=== PATIENT | female | born 1975 | race Caucasian/White ===

== ENCOUNTER 2018-04-14 11:30 | Emergency (ER) | payer SELFPAY ==
[2018-04-14 11:31] VITALS: BP 148/104; PULSE 77; RESP 16; TEMP 36.3; O2SAT 97; BMI 36.3
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
[2018-04-14] MEDS: Naproxen 500 MG Tablet PO (11:56)
[2018-04-14 12:16] VITALS: RESP 16
== END 2018-04-14 12:17 | disposition home or self-care (01) ==
LOC: ED 12:12
PROVIDERS: Emergency Provider Emergency Medicine; Family Provider Family Medicine; PCP Family Medicine
DX: S16.1XXA Strain of muscle, fascia and tendon at neck level, initial encounter (principal); S39.012A Strain of muscle, fascia and tendon of lower back, initial encounter; V49.9XXA Car occupant (driver) (passenger) injured in unspecified traffic accident, initial encounter; Y93.9 Activity, unspecified; Y92.9 Unspecified place or not applicable; Y99.9 Unspecified external cause status; E03.9 Hypothyroidism, unspecified; K50.90 Crohn's disease, unspecified, without complications; Z79.899 Other long term (current) drug therapy
CPT/HCPCS: 99283

== ENCOUNTER → 2018-06-08 08:43 | Outpatient (CLI) | payer SELFPAY ==
[2018-06-08 09:18] LABS: Absolute Lymphocyte Count 1.32 X10^3/ul (0.83-4.51); Absolute Neutrophil Count 3.5 X10^3/uL (2.0-7.7); Basophil# 0.03 X10^3/uL; Basophil% 0.6 % (0-1); Eosinophil# 0.14 X10^3/uL; Eosinophils% 2.6 % (0-5); Hematocrit 40.3 % (37-47); Hemoglobin 13.8 g/dl (12.0-15.0); Lymphocyte # 1.32 X10^3/ul (4.0); Lymphocyte % 24.5 % (19-41); Mean Corp Hgb Conc 34.2 g/gl (32-36); Mean Corpuscular Hgb 30.4 pg (27.0-32.0); Mean Corpuscular Volume 88.8 fL (81-99); Mean Platelet Vol. 9.4 fl (6.2-12.0); Monocyte# 0.38 X10^3/uL; Monocyte% 7.1 % (0-10); Neutrophil # 3.51 X10^3/uL (2.7-7.7); Neutrophil % 65.2 % (47-70); Platelet Count 265 K/mm3 (150-450); RBC Distribution Width CV 13.1 % (11.6-14.6); RBC Distribution Width SD 42.1 fl (35.1-43.9); Red Blood Count 4.54 M/mm3 (4.2-5.4); White Blood Count 5.4 K/mm3 (4.4-11.0)
[2018-06-08 09:19] LABS: POSITIVE COUNT NO; POSITIVE DIFFERENTIAL NO; POSITIVE MORPHOLOGY NO
[2018-06-08 10:30] LABS: Anion Gap 10 (5-15); BUN 15 mg/dL (7-18); BUN/Creat Ratio 17.3 RATIO (10-20); Calcium,Total 8.7 mg/dL (8.5-10.1); Chloride 103 mmol/L (98-107); Cholesterol 246 mg/dL (200); Creatinine, Serum 0.87 mg/dL (0.55-1.02); EST Glomerular Filtration Rate 76 mL/min (>60); Est Glom Filt Rate - Afr Amer 91 mL/min (>60); Glucose 95 mg/dL (74-106); High Density Lipoprotein 25 mg/dL; Sodium Level 139 mmol/L (136-145); T4 Free Direct 0.89 ng/dL (0.76-1.46); Thyroid Stim Hormone (TSH) 2.65 uIU/mL (0.358-3.74); Triglycerides 996 mg/dL
[2018-06-10 09:08] LABS: Vitamin B12 > 2000 pg/mL (211-911)
== END ==
PROVIDERS: Family Provider Family Medicine; PCP Family Medicine; Visit Provider Family Medicine
DX: E03.9 Hypothyroidism, unspecified (principal); E53.8 Deficiency of other specified B group vitamins; E55.9 Vitamin D deficiency, unspecified
CPT/HCPCS: 36415; 80048; 80061; 82607; 84439; 84443; 85025

== ENCOUNTER → 2018-07-09 14:59 | Outpatient (CLI) | payer SELFPAY ==
[2018-07-09 17:36] LABS: Cholesterol 280 mg/dL (200); High Density Lipoprotein 19 mg/dL; T4 Free Direct 0.84 ng/dL (0.76-1.46); Thyroid Stim Hormone (TSH) 2.38 uIU/mL (0.358-3.74); Triglycerides 2534 mg/dL
== END ==
PROVIDERS: Family Provider Family Medicine; PCP Family Medicine; Visit Provider Family Medicine
DX: E03.9 Hypothyroidism, unspecified (principal); E78.2 Mixed hyperlipidemia
CPT/HCPCS: 36415; 80061; 84439; 84443

== ENCOUNTER 2019-05-14 17:13 | Emergency (ER) | payer SELFPAY ==
[2019-05-14 17:15] VITALS: BP 154/95; PULSE 80; RESP 16; TEMP 36.3; O2SAT 95; BMI 37.3
[2019-05-14] MEDS: Ketorolac 60 MG/2 ML Vial IM (17:46)
[2019-05-14] MEDS: Orphenadrine 60 MG/2 ML Ampul IM (17:46)
--- NOTE | 2019-05-14 17:48 | ED.DCSUM_ITS ---
- ER Visit Summary Date of Service: 05/14/19 Chief Complaint: Back pain History of Present Illness: The patient is a 43 F with left lumbar back pain. Patient has had this pain in the past. It radiates down her leg. Worse with movement. Occasional numbness and tingling in the left leg. Denies any other neurologic symptoms. Denies abdominal or GI symptoms. She does report history of ovarian cysts and she currently has foul-smelling urine. 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 No fevers. Physical Examination: Afebrile and vital signs unremarkable. Patient alert and oriented. No acute distress. Left lower lumbar region is tender to palpation. Skin is normal. Normal color. Straight leg raise negative. Good strength and sensation. Abdomen soft and nontender. Test Results: Urinalysis and test pending. Emergency Department Course and Treatment: I believe the patient has myofascial back pain. I believe the urinary symptoms may represent a UTI, but are likely incidental. I do not believe this is pyelonephritis. I will check a urinalysis and test. The patient was treated with Toradol and Norflex while awaiting results. Urine and hCG negative. Patient feels better on reevaluation. Will prescribe naproxen and Flexeril. Follow-up with her outpatient clinic. Treatment Plan: As above Disposition: Discharge Impression: 1. Lumbar back pain with left-sided sciatica This note was generated with [employer] software. It may contain incorrect words, spelling, and punctuation that were not noted in review of the chart prior to signing ED Disposition - Plan for ED Patient: Referrals: Tanvi Galeana,Edie Thomas [Primary Care Provider] -
[2019-05-14 17:57] LABS: Bacteria 0 SEEN /hpf (None Seen); Mucous, Urine 0 SEEN /hpf (<or=2+); White Blood Cells 0 SEEN /hpf (0-5)
[2019-05-14 18:00] LABS: Color, Urine Straw (Yellow); Glucose, Dipstick Normal (Normal); Ketone-Dipstick Negative (Negative); Leukocyte Esterase-Dipstick Negative /ul (Negative); Nitrite-Dipstick Negative (Negative); Occult Blood-Urine Negative /ul (Negative); Protein-Dipstick Negative (Negative); Urine Bilirubin Dipstick Negative (Negative); Urine Clarity Clear (Clear); Urine Urobilinogen Normal (Normal)
[2019-05-14 18:03] LABS: Internal QC Validated? YES +Cl - CLEAR BKGD; Pregnancy, Urine Negative Negative
[2019-05-14 18:07] LABS: Red Blood Cells-Urine 0-5 SEEN /hpf (0-5); Squamous Epithelial Cells - UA 0-5 SEEN /hpf (5-10)
--- NOTE | 2019-05-14 18:28 | ED.DEP ---
ED Disposition - Plan for ED Patient: Instructions: BACK PAIN w/ SCIATICA Prescriptions: cycloBENZAPRine HCl [Flexeril] 10 mg PO TID PRN #20 tab PRN Reason: Muscle Spasm Prescription Printed Naproxen [Naprosyn] 500 mg PO BID PRN #20 tab Prescription Printed Referrals: Free Kervin,Edie Thomas [Primary Care Provider] -
== END 2019-05-14 18:52 | disposition home or self-care (01) ==
LOC: ED 18:06
PROVIDERS: Emergency Provider Emergency Medicine
DX: M54.42 Lumbago with sciatica, left side (principal)
CPT/HCPCS: 81001; 81025; 96372; 99282